=== PATIENT | male | born 1980 | race Caucasian/White ===

== ENCOUNTER 2019-03-29 21:32 | Emergency (ER) | payer SELFPAY ==
[~2019-03-29] VITALS: Ht 177.8 cm; Wt 79.4 kg
[2019-03-29 22:02] VITALS: BP 134/98
[2019-03-29 22:28] LABS: Basophils # (auto) 0.1 uL; Basophils % (auto) 0.9 % (0.0-2.0); Eosinophils # (auto) 0.2 uL; Hematocrit 39.3 % (41.0-53.0); Hemoglobin 13.4 g/dL (13.5-17.5); Lymphocytes # (auto) 1.7 uL; Lymphocytes % (auto) 18.4 % (10.0-50.0); Mean Corpuscular Hemoglobin 29.7 pg (28.0-32.0); Mean Corpuscular Hgb Conc. 34.1 g/dL (32.0-36.0); Monocytes # (auto) 0.6 uL; Monocytes % (auto) 6.7 % (0.0-12.0); Neutrophils # (auto) 6.7 uL; Platelet Count (auto) 313 10^3/uL (140-450); Red Blood Cells 4.52 10^6/uL (4.5-5.90); Red Cell Distribution Width 13.9 % (11.8-14.3); White Blood Cell 9.2 10^3/uL (4.4-10.8)
[2019-03-29 22:47] LABS: Albumin 3.3 g/dL (3.4-5.0); Calcium 8.8 mg/dL (8.5-10.1); Potassium 3.2 mmol/L (3.5-5.1)
[2019-03-29 22:56] LABS: BUN/Creatinine Ratio 17.6; Bilirubin, Total 0.7 mg/dL (0.2-1.0); CRP High Sensitivity 3.15 mg/dL (< 0.3); Total Protein 7.3 g/dL (6.4-8.2)
== END 2019-03-29 23:55 | disposition left against medical advice (07) ==
LOC: ER 21:35
DX: R22.0 Localized swelling, mass and lump, head (principal); F17.210 Nicotine dependence, cigarettes, uncomplicated; F15.10 Other stimulant abuse, uncomplicated; Z53.29 Procedure and treatment not carried out because of patient's decision for other reasons
CPT/HCPCS: 36415; 80053; 85025; 86141; 87040

== ENCOUNTER 2020-05-19 07:04 | Emergency (ER) | payer MEDICAID, OTHER ==
[~2020-05-19] VITALS: Ht 177.8 cm; Wt 88.9 kg
[2020-05-19 07:20] VITALS: BP 120/70
== END 2020-05-19 07:46 | disposition home or self-care (01) ==
LOC: EDBD 07:04 → ER 07:04
DX: J06.9 Acute upper respiratory infection, unspecified (principal)

== ENCOUNTER → 2020-05-19 | Emergency (ER) | payer SELFPAY ==
[~2020-05-19] VITALS: Ht 177.8 cm; Wt 85.3 kg
[2020-05-19 15:04] VITALS: BP 165/95
== END | disposition home or self-care (01) ==
LOC: ER 13:42
DX: J02.9 Acute pharyngitis, unspecified (principal); F17.210 Nicotine dependence, cigarettes, uncomplicated